=== PATIENT | female | born 1945 | race Caucasian/White ===

== ENCOUNTER 2019-10-03 06:37 | Inpatient (IN) | payer MEDICARE, MEDICAID ==
[~2019-10-03] VITALS: Ht 162.6 cm; Wt 68.9 kg
[2019-10-03] VITALS (7 sets, daily range): BP systolic 124–159; BP diastolic 55–83
[2019-10-03] MEDS ORDERED: METHYLPREDNISOLONE SOD SUCC 125 MG/2 ML VIAL IV STA (06:43)
[2019-10-03] MEDS ORDERED: ALBUTEROL (0.083%) 2.5MG/3ML NEB HHN STA (06:43)
[2019-10-03] MEDS ORDERED: IPRATROPIUM BROMIDE (0.02%) 0.5MG/2.5ML NEB HHN STA (06:43)
[2019-10-03] MEDS ORDERED: MAGNESIUM 2 G PREMIX 50 ML IV STA (06:43)
[2019-10-03 07:29] LABS: CHLORIDE 102 mEq/L (98-107)
[2019-10-03 07:38] LABS: BASOPHILS % 0.3 % (0.0-2.0); EOSINOPHILS % 2.4 % (0.0-5.0); HEMATOCRIT. 36.9 % (36.0-48.0); HEMOGLOBIN. 12.4 g/dL (12.0-16.0); LYMPHOCYTES % 8.6 % (20.0-50.0); MEAN CORPUSCULAR HEMOGLOBIN 29.8 pg (28.0-32.0); MEAN CORPUSCULAR VOLUME 88.3 fL (81.0-99.0); MEAN PLATELET VOLUME 7.4 fl (7.4-10.4); MONOCYTES % 10.5 % (2.0-8.0); NEUTROPHILS % 78.2 % (40.0-76.0); PLATELET 168 x1000/uL (130-400); RED BLOOD CELL COUNT 4.18 mill/uL (4.2-5.4); RED CELL DISTRIBUTION WIDTH 13.5 % (11.6-14.6)
[2019-10-03] MEDS ORDERED: DIPHENHYDRAMINE 50MG/ML VIAL IV PRN (09:30)
[2019-10-03] MEDS ORDERED: NITROGLYCERIN 0.4MG TABLET SL SL PRN (09:30)
[2019-10-03] MEDS ORDERED: ONDANSETRON HCL 4MG/2ML INJ IV PRN (09:30)
[2019-10-03] MEDS ORDERED: CLONIDINE 0.1MG TABLET PO PRN (09:30)
[2019-10-03] MEDS ORDERED: GUAIFENESIN 200MG/10ML SUGAR FREE UDC PO PRN (09:30)
[2019-10-03] MEDS ORDERED: DEXTROSE 50% WATER 50ML SYRINGE IV PRN (09:30)
[2019-10-03] MEDS ORDERED: IPRATROPIUM/ALBUTEROL 0.5-3(2.5)MG/3ML NEB NEB PRN (09:30)
[2019-10-03] MEDS ORDERED: MAGNESIUM/ALUMINUM HYDROXIDE/SIMETHICONE 30ML UDC PO PRN (09:30)
[2019-10-03] MEDS ORDERED: DOCUSATE SODIUM 100MG CAPSULE PO PRN (09:30)
[2019-10-03 09:37] LABS: BG BASE EXCESS 0.6 mmol/L (-2.0-2.0); BG BILEVEL POS AIRWAY PRESSURE 15/5; BG CARBOXYHEMOGLOBIN 0.5 % (0.5-1.5); BG DEOXYHEMOGLOBIN 0.9 % (0.0-5.0); BG FRACTION INSPIRED OXYGEN 50; BG METHEMOGLOBIN 0.1 % (0.0-1.5); BG OXYGEN SATURATION 99.1 % (92.0-98.5); BG OXYHEMOGLOBIN 98.5 % (94.0-97.0); BG PCO2 39.5 mmHg (35.0-45.0); BG PO2 155.4 mmHg (75.0-100.0); BG SAMPLE SITE RIGHT RADIAL; BG TOTAL HEMOGLOBIN 12.6 g/dL (12.0-18.0); BG VENT MODE MASK - BIPAP; BG VENT RATE 16 set
[2019-10-03] MEDS: BLOOD SUGAR DIAGNOSTIC STRIP TEST SCH ×3 (14:03→21:00)
[2019-10-03] MEDS: DILTIAZEM HCL 60MG TABLET PO SCH ×3 (14:15→23:38)
[2019-10-03] MEDS: METHYLPREDNISOLONE SOD SUCC 125 MG/2 ML VIAL IV SCH ×2 (14:16→22:00)
[2019-10-03] MEDS: TRAMADOL 50MG TABLET PO PRN ×2 (14:16→20:18)
[2019-10-03] MEDS: INSULIN LISPRO 100 UNITS/ML SUBCUT SCH ×3 (14:17→21:00)
[2019-10-03] MEDS ORDERED: TRAZ-252 MT (14:31)
[2019-10-03] MEDS ORDERED: HYDR-3280 MT (14:32)
[2019-10-03] MEDS ORDERED: GABA-531 PO (14:33)
[2019-10-03] MEDS ORDERED: FLUT1DIS3 INH (14:34)
[2019-10-03] MEDS ORDERED: BUDE0.5A3 NEB (14:35)
[2019-10-03] MEDS ORDERED: ALBU18HF2 IH (14:35)
[2019-10-03] MEDS ORDERED: ASPI-986 MT (14:36)
[2019-10-03] MEDS ORDERED: CLOP75TA33 MT (14:37)
[2019-10-03] MEDS ORDERED: ATOR40TA70 MT (14:38)
[2019-10-03] MEDS ORDERED: PRED5TAB MT (14:38)
[2019-10-03] MEDS ORDERED: ALEN70TA68 PO (14:40)
[2019-10-03] MEDS: IPRATROPIUM/ALBUTEROL 0.5-3(2.5)MG/3ML NEB HHN SCH ×2 (15:28→21:32)
[2019-10-03] MEDS: ENOXAPARIN 40MG/0.4ML SYR SUBCUT SCH (15:47)
[2019-10-03] MEDS ORDERED: LEVOFLOXACIN 500MG PREMIX 100 ML IV SCH (17:00)
[2019-10-03 17:21] LABS: CREATINE KINASE 70 IU/L (26-192)
[2019-10-03 17:22] LABS: CREATINE KINASE MB FRACTION 1.2 ng/mL (0.5-3.6)
[2019-10-03] MEDS: LORAZEPAM 0.5MG TABLET PO PRN (20:16)
[2019-10-03] MEDS: ASCORBIC ACID 500 MG TABLET PO SCH (20:16)
[2019-10-03] MEDS: GUAIFENESIN/DM 600MG/30MG ER TAB 12HR PO SCH (20:18)
[2019-10-03] MEDS: FAMOTIDINE 20MG TABLET PO SCH (20:18)
[2019-10-03] MEDS: ZOLPIDEM TARTRATE 5MG TABLET PO PRN (23:38)
[2019-10-04] VITALS (17 sets, daily range): BP systolic 95–137; BP diastolic 35–79
[2019-10-04] MEDS: IPRATROPIUM/ALBUTEROL 0.5-3(2.5)MG/3ML NEB HHN SCH ×6 (00:27→20:55)
[2019-10-04 01:23] LABS: CREATINE KINASE 66 IU/L (26-192)
[2019-10-04 01:24] LABS: CREATINE KINASE MB FRACTION 1.9 ng/mL (0.5-3.6)
[2019-10-04] MEDS: LORAZEPAM 0.5MG TABLET PO PRN (01:32)
[2019-10-04] MEDS: ACETAMINOPHEN 325MG TABLET PO PRN (01:32)
[2019-10-04] MEDS: METHYLPREDNISOLONE SOD SUCC 125 MG/2 ML VIAL IV SCH ×2 (06:32→13:26)
[2019-10-04] MEDS: DILTIAZEM HCL 60MG TABLET PO SCH ×3 (06:32→17:28)
[2019-10-04] MEDS: TRAMADOL 50MG TABLET PO PRN ×2 (06:33→16:16)
[2019-10-04] MEDS: BLOOD SUGAR DIAGNOSTIC STRIP TEST SCH ×4 (07:30→21:47)
[2019-10-04] MEDS: INSULIN LISPRO 100 UNITS/ML SUBCUT SCH ×4 (08:38→21:00)
[2019-10-04] MEDS: FAMOTIDINE 20MG TABLET PO SCH ×2 (09:01→21:47)
[2019-10-04] MEDS: ZINC SULFATE 220 MG ( 50 ) CAPSULE PO SCH (09:01)
[2019-10-04] MEDS: GUAIFENESIN/DM 600MG/30MG ER TAB 12HR PO SCH ×2 (09:01→21:47)
[2019-10-04] MEDS: ASCORBIC ACID 500 MG TABLET PO SCH ×2 (09:01→21:47)
[2019-10-04] MEDS: ASPIRIN 325MG EC TABLET PO SCH (09:01)
[2019-10-04 09:02] LABS: *AMPHETAMINES SCREEN URINE NEGATIVE (NEGATIVE); *BARBITURATES SCREEN URINE NEGATIVE (NEGATIVE); *BENZODIAZEPINES SCREEN URINE NEGATIVE (NEGATIVE); *COCAINE SCREEN URINE NEGATIVE (NEGATIVE); CANNABINOID URINE SCREEN NEGATIVE (NEGATIVE); METHADONE URINE SCREEN NEGATIVE (NEGATIVE); OPIATES URINE SCREEN PRESUMTIVE POSITIVE (NEGATIVE)
[2019-10-04 09:03] LABS: PHENCYCLIDINE URINE SCREEN PRESUMTIVE POSITIVE (NEGATIVE)
[2019-10-04] MEDS: METHYLPREDNISOLONE SOD SUCC 40 MG/ML VIAL IV SCH (15:30)
[2019-10-04] MEDS: ENOXAPARIN 40MG/0.4ML SYR SUBCUT SCH (15:30)
[2019-10-04] MEDS: LEVOFLOXACIN 250MG PREMIX 50 ML IV SCH (17:28)
[2019-10-04] MEDS: ZOLPIDEM TARTRATE 5MG TABLET PO PRN (21:47)
[2019-10-05] VITALS (13 sets, daily range): BP systolic 47–164; BP diastolic 20–112
[2019-10-05] MEDS: METHYLPREDNISOLONE SOD SUCC 40 MG/ML VIAL IV SCH ×3 (01:07→15:43)
[2019-10-05] MEDS: DILTIAZEM HCL 60MG TABLET PO SCH ×4 (01:08→17:58)
[2019-10-05] MEDS: IPRATROPIUM/ALBUTEROL 0.5-3(2.5)MG/3ML NEB HHN SCH ×6 (01:08→21:23)
[2019-10-05] MEDS: ACETAMINOPHEN 325MG TABLET PO PRN ×2 (05:50→13:09)
[2019-10-05] MEDS: BLOOD SUGAR DIAGNOSTIC STRIP TEST SCH ×4 (07:30→22:13)
[2019-10-05] MEDS: INSULIN LISPRO 100 UNITS/ML SUBCUT SCH ×4 (07:55→21:00)
[2019-10-05] MEDS: TRAMADOL 50MG TABLET PO PRN ×3 (08:05→20:24)
[2019-10-05] MEDS: ASCORBIC ACID 500 MG TABLET PO SCH ×2 (08:06→20:23)
[2019-10-05] MEDS: ASPIRIN 325MG EC TABLET PO SCH (08:06)
[2019-10-05] MEDS: ZINC SULFATE 220 MG ( 50 ) CAPSULE PO SCH (09:33)
[2019-10-05] MEDS: GUAIFENESIN/DM 600MG/30MG ER TAB 12HR PO SCH ×2 (09:33→20:23)
[2019-10-05] MEDS: FAMOTIDINE 20MG TABLET PO SCH ×2 (09:33→20:23)
[2019-10-05] MEDS: ENOXAPARIN 40MG/0.4ML SYR SUBCUT SCH (15:43)
[2019-10-05] MEDS: LORAZEPAM 0.5MG TABLET PO PRN (16:59)
[2019-10-05] MEDS: LEVOFLOXACIN 250MG PREMIX 50 ML IV SCH (16:59)
[2019-10-05] MEDS: ZOLPIDEM TARTRATE 5MG TABLET PO PRN (20:23)
[2019-10-06] VITALS (8 sets, daily range): BP systolic 117–137; BP diastolic 51–93
[2019-10-06] MEDS: METHYLPREDNISOLONE SOD SUCC 40 MG/ML VIAL IV SCH ×2 (00:13→08:39)
[2019-10-06] MEDS: DILTIAZEM HCL 60MG TABLET PO SCH ×3 (00:15→12:01)
[2019-10-06] MEDS: LORAZEPAM 0.5MG TABLET PO PRN (00:34)
[2019-10-06] MEDS: IPRATROPIUM/ALBUTEROL 0.5-3(2.5)MG/3ML NEB HHN SCH ×3 (00:45→10:03)
[2019-10-06] MEDS: TRAMADOL 50MG TABLET PO PRN ×2 (06:21→12:01)
[2019-10-06] MEDS: BLOOD SUGAR DIAGNOSTIC STRIP TEST SCH ×2 (07:54→12:08)
[2019-10-06] MEDS: INSULIN LISPRO 100 UNITS/ML SUBCUT SCH ×2 (08:38→12:08)
[2019-10-06] MEDS: FAMOTIDINE 20MG TABLET PO SCH (08:39)
[2019-10-06] MEDS: ASCORBIC ACID 500 MG TABLET PO SCH (08:39)
[2019-10-06] MEDS: GUAIFENESIN/DM 600MG/30MG ER TAB 12HR PO SCH (08:39)
[2019-10-06] MEDS: ASPIRIN 325MG EC TABLET PO SCH (08:39)
[2019-10-06] MEDS: ZINC SULFATE 220 MG ( 50 ) CAPSULE PO SCH (08:40)
[2019-10-06] MEDS ORDERED: LEVOFLOXACIN 250MG TABLET PO SCH (11:00)
== END 2019-10-06 13:30 | disposition home health service (06) | DRG 917 ==
LOC: ER 06:37 → 5EST 08:52 → SUPCPDRO 08:58 → EDBEDREQ 09:06 → EDBEDREQTM 09:06 → ENRESERV 11:55
PROVIDERS: ADMIT Internal Medicine; ATTEND Internal Medicine
PROC: 5A09357 Assistance with Respiratory Ventilation, Less than 24 Consecutive Hours, Continuous Positive Airway Pressure (ICD-10-PCS; principal; 2019-10-03)
DX: T40.991A Poisoning by other psychodysleptics [hallucinogens], accidental (unintentional), initial encounter (principal); J96.01 Acute respiratory failure with hypoxia; J68.0 Bronchitis and pneumonitis due to chemicals, gases, fumes and vapors; E44.1 Mild protein-calorie malnutrition; I47.1 Supraventricular tachycardia; J44.1 Chronic obstructive pulmonary disease with (acute) exacerbation; R79.89 Other specified abnormal findings of blood chemistry; F11.90 Opioid use, unspecified, uncomplicated; E11.9 Type 2 diabetes mellitus without complications; F16.90 Hallucinogen use, unspecified, uncomplicated; I10 Essential (primary) hypertension; Z99.81 Dependence on supplemental oxygen; Y92.89 Other specified places as the place of occurrence of the external cause; Z87.891 Personal history of nicotine dependence; Z79.4 Long term (current) use of insulin; Z88.1 Allergy status to other antibiotic agents; Z88.6 Allergy status to analgesic agent; Z79.899 Other long term (current) drug therapy; Z79.82 Long term (current) use of aspirin; Z79.02 Long term (current) use of antithrombotics/antiplatelets; Z79.52 Long term (current) use of systemic steroids; Z68.26 Body mass index [BMI] 26.0-26.9, adult; Z71.51 Drug abuse counseling and surveillance of drug abuser; F19.90 Other psychoactive substance use, unspecified, uncomplicated
CPT/HCPCS: 36415; 36600; 71045; 80053; 80061; 80305; 82375; 82550; 82553; 82805; 82962; 83036; 83880; 84484; 85025; 87804; 93005; 93306; 93970; 94640; 94644; 94660; 97162; 97166; 99291; J1200; J1650; J1815; J1956; J2920; J2930; J3475